=== PATIENT | female | born 1945 | race Caucasian/White ===

== ENCOUNTER 2017-08-12 13:14 | Emergency (ER) | payer MEDICARE, OTHER ==
[~2017-08-12] VITALS: Ht 170.2 cm; Wt 76.0 kg
[2017-08-12 13:32] VITALS: BP 128/60; PULSE 56; RESP 20; TEMP 98.2; O2SAT 99
[2017-08-12] MEDS ORDERED: SODIUM CHLORIDE 0.9% FLUSH 10 ML FLUSH IVF PRN ×2 (14:15)
--- NOTE | 2017-08-12 14:34 | RADRPT ---
EXAM DATE/TIME: 08/12/2017 14:18 [place] COMPARISON: No previous studies available for comparison. INDICATIONS : Short of breath, recently treated for pneumonia MEDICAL HISTORY : Chronic obstructive pulmonary disease. SURGICAL HISTORY : infusaport ENCOUNTER: Initial ACUITY: 3 days PAIN SCORE: Non-responsive. LOCATION: Bilateral chest FINDINGS: Portable AP view of the chest demonstrates a normal-sized cardiac silhouette. No effusion, consolidat ion, or pneumothorax is visualized. The bones and soft tissues demonstrate no acute abnormality. Righ t chest wall [id number] is present with distal tip in the SVC. Cervical spine hardware is present. EKG lines overlie the patient. CONCLUSION: No acute cardiopulmonary abnormality is identified. Darius Catherine MD on August 12, 2017 at 14:30 Board Certified Radiologist. This report was verified electronically.
--- NOTE | 2017-08-12 14:37 | PD ---
HPI Chief Complaint: Respiratory Symptoms Time Seen by Provider: 14:02 Travel History International Travel<30 days: No Contact w/Intl Traveler<30days: No Traveled to known affect area: No History of Present Illness HPI 72 YO F with PMH of COPD, stage III CKD, GERD, hypertension, osteomyelitis of the left foot with IV antibiotics through implanted port, last dose 3 weeks ago presents to the ED for worsening SOB. Patient states " I can't catch my breath. " She denies CP, palpitations, cough, fever, chills. She states that she was recently hospitalized at [facility] and treated for aspiration PNA. She states that she was diagnosed as anemic at the time, but does not know the source of the anemia. She denies hematemesis, melena, hematochezia. She endorses chronic constipation secondary to pain medication use. She states that she has an appointment for upper and lower endoscopy in a few weeks. She saw her glass cutter, Dr. Tejada, today and was sent to the ED for further evaluation. [facility] Social History Alcohol Use: Yes Tobacco Use: No Substance Use: No Allergies-Medications (Allergen,Severity, Reaction): Coded Allergies: NSAIDS (Non-Steroidal Anti-Inflamma (Verified Allergy, Severe, DECREASED KIDNEY FUNCTION , 08/12/17) clonazepam (Verified Allergy, Severe, SEZIURES, 08/12/17) nickel (Verified Allergy, Severe, RASH , 08/12/17) Review of Systems Except as stated in HPI: all other systems reviewed are Neg Physical Exam Narrative GENERAL: Well-nourished, well-developed white female in no acute distress. Speaking in short sentences, improved with distraction. SKIN: Focused skin assessment pale, warm, dry. Implanted port in the right chest well-healed and without signs of infection. HEAD: Normocephalic. EYES: No scleral icterus. No injection or drainage. NECK: Supple, trachea midline. No JVD or lymphadenopathy. CARDIOVASCULAR: Regular rate and rhythm without murmurs, gallops, or rubs. RESPIRATORY: Breath sounds clear and equal bilaterally. No accessory muscle use. GASTROINTESTINAL: Abdomen soft, non-tender, nondistended. Active bowel sounds. MUSCULOSKELETAL: No cyanosis, or edema. FOCUSED LEFT LOWER EXTREMITY EXAM: Subcentimeter linear wound on the fourth toe without signs of infection. Neurovascularly intact distally. BACK: Nontender without obvious deformity. No CVA tenderness. Data Data Last Documented VS Vital Signs Date Time Temp Pulse Resp B/P (MAP) Pulse Ox O2 Delivery O2 Flow Rate FiO2 08/12/17 18:36 75 18 129/72 (91) 100 08/12/17 16:37 Room Air 08/12/17 13:32 98.2 Orders Orders Complete Blood Count With Diff (08/12/17 14:13) Comprehensive Metabolic Panel (08/12/17 14:13) B-Type Natriuretic Peptide (08/12/17 14:13) Act Partial Throm Time (Ptt) (08/12/17 14:13) Prothrombin Time / Inr (Pt) (08/12/17 14:13) Magnesium (Mg) (08/12/17 14:13) Ckmb (Isoenzyme) Profile (08/12/17 14:13) Troponin I (08/12/17 14:13) Urinalysis - C+S If Indicated (08/12/17 14:13) Iv Access Insert/Monitor (08/12/17 14:13) Electrocardiogram (08/12/17 14:13) Ecg Monitoring (08/12/17 14:13) Oximetry (08/12/17 14:13) Chest, Single Ap (08/12/17 14:13) Sodium Chloride 0.9% Flush (Ns Flush) (08/12/17 14:15) Heparin Central Flush (Heparin Central F (08/12/17 14:15) Sodium Chloride 0.9% Flush (Ns Flush) (08/12/17 14:15) Heparin Central Flush (Heparin Central F (08/12/17 14:15) Arterial Blood Gas (Abg) (08/12/17 ) D-Dimer (08/12/17 15:00) Ed Discharge Order (08/12/17 17:11) Labs Laboratory Tests Test 08/12/17 14:30 08/12/17 15:05 08/12/17 16:25 White Blood Count 7.6 TH/MM3 Red Blood Count 4.02 MIL/MM3 Hemoglobin 11.5 GM/DL Hematocrit 33.8 % Mean Corpuscular Volume 84.2 FL Mean Corpuscular Hemoglobin 28.6 PG Mean Corpuscular Hemoglobin Concent 33.9 % Red Cell Distribution Width 14.8 % Platelet Count 315 TH/MM3 Mean Platelet Volume 8.2 FL Neutrophils (%) (Auto) 80.5 % Lymphocytes (%) (Auto) 17.2 % Monocytes (%) (Auto) 1.6 % Eosinophils (%) (Auto) 0.1 % Basophils (%) (Auto) 0.6 % Neutrophils # (Auto) 6.1 TH/MM3 Lymphocytes # (Auto) 1.3 TH/MM3 Monocytes # (Auto) 0.1 TH/MM3 Eosinophils # (Auto) 0.0 TH/MM3 Basophils # (Auto) 0.0 TH/MM3 CBC Comment DIFF FINAL Differential Comment Prothrombin Time 10.7 SEC Prothromb Time International Ratio 1.1 RATIO Activated Partial Thromboplast Time 52.5 SEC D-Dimer Quantitative (PE/DVT) 0.27 MG/L FEU Blood Urea Nitrogen 11 MG/DL Creatinine 1.06 MG/DL Random Glucose 127 MG/DL Total Protein 7.4 GM/DL Albumin 3.5 GM/DL Calcium Level 8.8 MG/DL Magnesium Level 2.3 MG/DL Alkaline Phosphatase 68 U/L Aspartate Amino Transf (AST/SGOT) 21 U/L Alanine Aminotransferase (ALT/SGPT) 28 U/L Total Bilirubin 0.3 MG/DL Sodium Level 137 MEQ/L Potassium Level 4.5 MEQ/L Chloride Level 100 MEQ/L Carbon Dioxide Level 30.5 MEQ/L Anion Gap 7 MEQ/L Estimat Glomerular Filtration Rate 51 ML/MIN Total Creatine Kinase 36 U/L Troponin I LESS THAN 0.02 NG/ML B-Type Natriuretic Peptide 17 PG/ML Blood Gas Puncture Site RT RADIAL Blood Gas Patient Temperature 98.6 Blood Gas HCO3 28 mmol/L Blood Gas Base Excess 4.5 mmol/L Blood Gas Oxygen Saturation 94 % Arterial Blood pH 7.52 Arterial Blood Partial Pressure CO2 34 mmHg Arterial Blood Partial Pressure O2 73 mmHG Arterial Blood Oxygen Content 15.3 Vol % Arterial Blood Carboxyhemoglobin 1.1 % Arterial Blood Methemoglobin 0.5 % Blood Gas Hemoglobin 11.5 G/DL Oxygen Delivery Device ROOM AIR Blood Gas Inspired Oxygen 21 % Urine Color LIGHT-YELLOW Urine Turbidity CLEAR Urine pH 8.5 Urine Specific [place] 1.008 Urine Protein NEG mg/dL Urine Glucose (UA) NEG mg/dL Urine Ketones NEG mg/dL Urine Occult Blood NEG Urine Nitrite NEG Urine Bilirubin NEG Urine Urobilinogen LESS THAN 2.0 MG/DL Urine Leukocyte Esterase TRACE Urine RBC 1 /hpf Urine WBC 1 /hpf Urine Squamous Epithelial Cells 2 /hpf Urine Bacteria RARE /hpf Microscopic Urinalysis Comment CULT NOT INDICATED MDM Medical Decision Making Medical Screen Exam Complete: Yes Emergency Medical Condition: Yes Differential Diagnosis Anemia versus pneumonia versus PE versus anxiety versus other Narrative Course 72 YO F with PMH of COPD, stage III CKD, GERD, hypertension, osteomyelitis of the left foot with IV antibiotics through implanted port, last dose 3 weeks ago presents to the ED for worsening SOB. She states that she was recently hospitalized at [facility] and treated for aspiration PNA. States she was told she is anemic at the time, but does not know the source of the anemia. She denies hematemesis, melena, hematochezia. She states that she has an appointment for upper and lower endoscopy in a few weeks. She saw her glass cutter, Dr. Dong, today and was sent to the ED for further evaluation. On arrival patient is afebrile, pulse 56, respiratory rate 20 with O2 sats 99% on room air. On exam she does appear tachypneic but this is improved by distraction. Chest is CTAB. Abdomen is soft and nontender. No lower extremity edema noted. EKG rate 51, sinus bradycardia. ND interval 164, QRS 90, QTC 413. No acute ST changes. Reviewed by Dr. Myles. Wells Score 1.5, low risk for PE. ABG: PH 7.51. PCO2 34.2. Bicarb 27.5. CBC: WBC 7.6. Hemoglobin 11.5. Coags: INR 1.1. D-dimer 0.27. CMP: BUN 11, creatinine 1.06. Cardiac enzymes negative 1. BNP 17. UA: No culture indicated. On recheck vitals remained very stable. Dr. Dong came to the bedside, states that he is available if needed. The patient's record from 08/06 visit to outside hospital arrived. Patient underwent CTA which was negative for PE. They did a similar workup which resulted in a diagnosis of anxiety.Patient's daughter states that the patient has anxiolytics at home but does not take them. Discussed the results of the workup with the patient. She is instructed to resume outpatient medications, follow-up with Dr. Dong. The patient is stable and discharged home. Diagnosis Primary Impression: Shortness of breath at rest Referrals: Letitia Dong MD Additional Instructions: Rest, hydrate. Resume at home medications as previously prescribed. Avoid known stressors as possible. Follow-up with Dr. Dong for further evaluation. Return to the ED for worsening symptoms or any urgent or emergent medical condition. Disposition: 01 DISCHARGE HOME Condition: Stable Janelle Ram August 12, 2017 14:37
[2017-08-12 14:41] VITALS: BP 134/67; PULSE 53; RESP 18; O2SAT 100
[2017-08-12 15:03] LABS: AUTOMATED NEUTROPHIL # 6.1 TH/MM3 (1.8-7.7); BASOPHIL % 0.6 % (0.0-2.0); EOSINOPHIL % 0.1 % (0.0-4.0); HEMATOCRIT 33.8 % (35.0-46.0); HEMOGLOBIN 11.5 GM/DL (11.6-15.3); LYMPH % 17.2 % (9.0-44.0); LYMPHOCYTE # 1.3 TH/MM3 (1.0-4.8); MEAN CELL VOLUME 84.2 FL (80.0-100.0); MEAN CORPUSCULAR HEMOGLOBIN 28.6 PG (27.0-34.0); MEAN CORPUSCULAR HGB CONC 33.9 % (32.0-36.0); MEAN PLATELET VOLUME 8.2 FL (7.0-11.0); MONO % 1.6 % (0.0-8.0); MONOCYTE # 0.1 TH/MM3 (0-0.9); NEUT % 80.5 % (16.0-70.0); PLATELET COUNT 315 TH/MM3 (150-450); RED BLOOD COUNT 4.02 MIL/MM3 (4.00-5.30); RED CELL DISTRIBUTION WIDTH 14.8 % (11.6-17.2); WHITE BLOOD COUNT 7.6 TH/MM3 (4.0-11.0)
[2017-08-12 15:26] LABS: ALBUMIN 3.5 GM/DL (3.4-5.0); ALT (GPT) 28 U/L (10-53); AST (GOT) 21 U/L (15-37); BICARBONATE 30.5 MEQ/L (21.0-32.0); BLOOD UREA NITROGEN 11 MG/DL (7-18); CALCIUM 8.8 MG/DL (8.5-10.1); CHLORIDE 100 MEQ/L (98-107); CREATININE 1.06 MG/DL (0.50-1.00); GLOMERULAR FILTRATION RATE 51 ML/MIN (>89); GLUCOSE,RANDOM 127 MG/DL (74-106); MAGNESIUM 2.3 MG/DL (1.5-2.5); SODIUM (NA) 137 MEQ/L (136-145)
[2017-08-12 15:30] LABS: ALKALINE PHOSPHATASE 68 U/L (45-117); TOTAL BILIRUBIN ADULT 0.3 MG/DL (0.2-1.0); TOTAL PROTEIN 7.4 GM/DL (6.4-8.2); TROPONIN I LESS THAN 0.02 NG/ML (0.02-0.05)
[2017-08-12 15:31] LABS: INTERNATIONAL NORMALIZED RATIO 1.1 RATIO; PROTHROMBIN TIME - PATIENT 10.7 SEC (9.8-11.6)
[2017-08-12 16:37] VITALS: BP 129/63; PULSE 52; RESP 18; O2SAT 98
[2017-08-12 17:04] LABS: BACTERIA, URINE RARE /hpf; BILIRUBIN, URINE NEG (NEG); BLOOD, URINE NEG (NEG); GLUCOSE,URINE NEG (NEG); KETONE, URINE NEG (NEG); NITRITE,URINE NEG (NEG); PH, URINE 8.5 (5.0-8.5); SQUAMOUS EPITHELIAL CELL URINE 2 /hpf (0-5); URINE COLOR LIGHT-YELLOW (YELLW/STRAW); URINE LEUKOCYTE ESTERASE TRACE (NEG)
--- NOTE | 2017-08-12 17:42 | PD ---
Data Data Last Documented VS Vital Signs Date Time Temp Pulse Resp B/P (MAP) Pulse Ox O2 Delivery O2 Flow Rate FiO2 08/12/17 16:37 52 18 129/63 (85) 98 Room Air 08/12/17 13:32 98.2 Orders Orders Complete Blood Count With Diff (08/12/17 14:13) Comprehensive Metabolic Panel (08/12/17 14:13) B-Type Natriuretic Peptide (08/12/17 14:13) Act Partial Throm Time (Ptt) (08/12/17 14:13) Prothrombin Time / Inr (Pt) (08/12/17 14:13) Magnesium (Mg) (08/12/17 14:13) Ckmb (Isoenzyme) Profile (08/12/17 14:13) Troponin I (08/12/17 14:13) Urinalysis - C+S If Indicated (08/12/17 14:13) Iv Access Insert/Monitor (08/12/17 14:13) Electrocardiogram (08/12/17 14:13) Ecg Monitoring (08/12/17 14:13) Oximetry (08/12/17 14:13) Chest, Single Ap (08/12/17 14:13) Sodium Chloride 0.9% Flush (Ns Flush) (08/12/17 14:15) Heparin Central Flush (Heparin Central F (08/12/17 14:15) Sodium Chloride 0.9% Flush (Ns Flush) (08/12/17 14:15) Heparin Central Flush (Heparin Central F (08/12/17 14:15) Arterial Blood Gas (Abg) (08/12/17 ) D-Dimer (08/12/17 15:00) Ed Discharge Order (08/12/17 17:11) Labs Laboratory Tests Test 08/12/17 14:30 08/12/17 15:05 08/12/17 16:25 White Blood Count 7.6 TH/MM3 Red Blood Count 4.02 MIL/MM3 Hemoglobin 11.5 GM/DL Hematocrit 33.8 % Mean Corpuscular Volume 84.2 FL Mean Corpuscular Hemoglobin 28.6 PG Mean Corpuscular Hemoglobin Concent 33.9 % Red Cell Distribution Width 14.8 % Platelet Count 315 TH/MM3 Mean Platelet Volume 8.2 FL Neutrophils (%) (Auto) 80.5 % Lymphocytes (%) (Auto) 17.2 % Monocytes (%) (Auto) 1.6 % Eosinophils (%) (Auto) 0.1 % Basophils (%) (Auto) 0.6 % Neutrophils # (Auto) 6.1 TH/MM3 Lymphocytes # (Auto) 1.3 TH/MM3 Monocytes # (Auto) 0.1 TH/MM3 Eosinophils # (Auto) 0.0 TH/MM3 Basophils # (Auto) 0.0 TH/MM3 CBC Comment DIFF FINAL Differential Comment Prothrombin Time 10.7 SEC Prothromb Time International Ratio 1.1 RATIO Activated Partial Thromboplast Time 52.5 SEC D-Dimer Quantitative (PE/DVT) 0.27 MG/L FEU Blood Urea Nitrogen 11 MG/DL Creatinine 1.06 MG/DL Random Glucose 127 MG/DL Total Protein 7.4 GM/DL Albumin 3.5 GM/DL Calcium Level 8.8 MG/DL Magnesium Level 2.3 MG/DL Alkaline Phosphatase 68 U/L Aspartate Amino Transf (AST/SGOT) 21 U/L Alanine Aminotransferase (ALT/SGPT) 28 U/L Total Bilirubin 0.3 MG/DL Sodium Level 137 MEQ/L Potassium Level 4.5 MEQ/L Chloride Level 100 MEQ/L Carbon Dioxide Level 30.5 MEQ/L Anion Gap 7 MEQ/L Estimat Glomerular Filtration Rate 51 ML/MIN Total Creatine Kinase 36 U/L Troponin I LESS THAN 0.02 NG/ML B-Type Natriuretic Peptide 17 PG/ML Blood Gas Puncture Site RT RADIAL Blood Gas Patient Temperature 98.6 Blood Gas HCO3 28 mmol/L Blood Gas Base Excess 4.5 mmol/L Blood Gas Oxygen Saturation 94 % Arterial Blood pH 7.52 Arterial Blood Partial Pressure CO2 34 mmHg Arterial Blood Partial Pressure O2 73 mmHG Arterial Blood Oxygen Content 15.3 Vol % Arterial Blood Carboxyhemoglobin 1.1 % Arterial Blood Methemoglobin 0.5 % Blood Gas Hemoglobin 11.5 G/DL Oxygen Delivery Device ROOM AIR Blood Gas Inspired Oxygen 21 % Urine Color LIGHT-YELLOW Urine Turbidity CLEAR Urine pH 8.5 Urine Specific [place] 1.008 Urine Protein NEG mg/dL Urine Glucose (UA) NEG mg/dL Urine Ketones NEG mg/dL Urine Occult Blood NEG Urine Nitrite NEG Urine Bilirubin NEG Urine Urobilinogen LESS THAN 2.0 MG/DL Urine Leukocyte Esterase TRACE Urine RBC 1 /hpf Urine WBC 1 /hpf Urine Squamous Epithelial Cells 2 /hpf Urine Bacteria RARE /hpf Microscopic Urinalysis Comment CULT NOT INDICATED MDM Supervised Visit with [facility]: Yes Narrative Course The history, exam, and medical decision-making in the associated mid-level provider note were completed with my assistance. I reviewed and agree with the findings presented. I attest that I had a [id number] encounter with the patient on the same day, and personally performed and documented my assessment and findings in the medical record. *My assessment and Findings: Is a 72-year-old woman who presents to the emergency department complaining of shortness of breath. Recently discharged from another hospital. Multiple comorbidities. After discussing with the patient and family, reviewing the records that we have, reviewing her diagnoses, impression is she has a lot of diagnostic testing without a lot of disease. She reports having multiple Holter monitors in the past. Multiple echoes did not really show anything other than trivial valve dysfunction. I think that in total her symptoms are likely related to anxiety. There is no evidence of heart failure. We checked a d-dimer that was negative. When discussing with the family she became a little bit upset and states that she had been told this by other doctors in the past as well. I told her that it is a difficult thing to prove but is certainly possible and wanted to be as thorough as possible and consider all possibilities. Her workup here in the emergency department is otherwise negative and despite her ongoing symptoms I do not think to be evaluated readmitting her to the hospital. She will be discharged home for further outpatient follow-up. Diagnosis Primary Impression: Shortness of breath at rest Referrals: Letitia Dong MD Additional Instruction: Rest, hydrate. Resume at home medications as previously prescribed. Avoid known stressors as possible. Follow-up with Dr. Dong for further evaluation. Return to the ED for worsening symptoms or any urgent or emergent medical condition. Disposition: 01 DISCHARGE HOME Condition: Stable Jorge Alberto Myles MD August 12, 2017 17:42
[2017-08-12 18:36] VITALS: BP 129/72
--- NOTE | 2017-08-13 08:50 | EKG ---
Date Performed: 08/12/2017 Time Performed: 15:28:28 PTAGE: 72 years EKG: SINUS BRADYCARDIA BORDERLINE ECG NO PREVIOUS TRACING DOCTOR: Brooks Lanier Interpretating Date/Time 08/13/2017 08:46:56
== END 2017-08-12 18:54 | disposition home or self-care (01) ==
LOC: NEPE 13:14
DX: R06.02 Shortness of breath (principal); F41.9 Anxiety disorder, unspecified; J44.9 Chronic obstructive pulmonary disease, unspecified; I12.9 Hypertensive chronic kidney disease with stage 1 through stage 4 chronic kidney disease, or unspecified chronic kidney disease; N18.3 Chronic kidney disease, stage 3 (moderate)
CPT/HCPCS: 36600; 71045; 80053; 81001; 82550; 82805; 83735; 83880; 84484; 85025; 85379; 85610; 85730; 93005; 99285; J1642